=== PATIENT | female | born 1950 | race Hispanic/Latino ===

== ENCOUNTER → 2018-01-10 | Outpatient (CLI) | payer MEDICARE | END | disposition home or self-care (01) | LOC: SHCH 10:58 | PROVIDERS: ATTEND Internal Medicine Cardiovascular Disease | DX: I51.7 Cardiomegaly (principal); Z95.2 Presence of prosthetic heart valve | CPT/HCPCS: 93306 ==

== ENCOUNTER → 2019-01-26 | Outpatient (CLI) | payer MEDICARE | END | disposition home or self-care (01) | LOC: SHCH 10:00 | PROVIDERS: ATTEND Internal Medicine Cardiovascular Disease | DX: I08.2 Rheumatic disorders of both aortic and tricuspid valves (principal); I49.5 Sick sinus syndrome; Z95.2 Presence of prosthetic heart valve | CPT/HCPCS: 93306 ==

== ENCOUNTER 2019-05-08 23:52 | Emergency (ER) | payer MEDICARE ==
[~2019-05-08 23:52] MED LIST: CARV12.511 PO; FURO20TA4 PO; LISI-613 PO
[2019-05-09] MEDS ORDERED: ONDANSETRON HCL 4 MG/2 ML VIAL ONE (00:42)
[2019-05-09] MEDS ORDERED: METOCLOPRAMIDE 10 MG/2 ML VIAL ONE (00:42)
[2019-05-09] MEDS ORDERED: FAMOTIDINE/PF 20 MG/2 ML VIAL IV ONE (00:43)
[2019-05-09] MEDS ORDERED: SODIUM CHLORIDE 0.9% 1000ML 1,000 ML IV ONE (00:44)
[2019-05-09 00:56] LABS: BASOPHILS % (AUTO) 0.3 % (0.0-5.0); EOSINOPHILS % (AUTO) 2.9 % (0.0-8.0); HEMATOCRIT 35.3 % (36-48); MEAN CORPUSCULAR HEMOGLOBIN 29.6 pg (27.0-33.0); MEAN CORPUSCULAR HGB CONC 33.1 g/dL (32.0-36.0); MEAN CORPUSCULAR VOLUME 89.4 fL (79-99); MONOCYTES % (AUTO) 6.2 % (3.0-13.0); NEUTROPHILS % (AUTO) 55.1 % (40.0-77.0); PLATELET COUNT (AUTO) 180 K/uL (130-400); RED BLOOD CELL COUNT(AUTO) 3.95 MIL/uL (4.00-5.50); RED CELL DISTRIBUTION WIDTH 12.7 % (11.0-15.5); WHITE BLOOD COUNT (AUTO) 7.5 K/uL (4.8-10.8)
[2019-05-09 01:00] LABS: INR 0.9 (0.85-1.15); PARTIAL THROMBOPLASTIN TIME 25.2 SEC (26.3-35.5); PROTHROMBIN TIME 9.8 SEC (9.6-11.6)
[2019-05-09 01:01] LABS: CREATININE 0.9 mg/dL (0.5-1.5); POTASSIUM 3.9 mmol/L (3.5-5.1)
[2019-05-09 01:06] LABS: ALBUMIN 3.6 g/dL (3.5-5.0); BILIRUBIN,TOTAL 0.2 mg/dL (0.2-1.0); TOTAL PROTEIN, SERUM 7.5 g/dL (6.0-8.3)
[2019-05-09 01:41] LABS: APPEARANCE,URINE Clear (CLEAR); BILIRUBIN,URINE Negative (NEGATIVE); COLOR,URINE Yellow (YELLOW); GLUCOSE, URINE (UA) Negative (NEGATIVE); KETONES,URINE Negative (NEGATIVE); LEUKOCYTE ESTERASE ,URINE Small (NEGATIVE); NITRATE,URINE Negative (NEGATIVE); OCCULT BLOOD,URINE Negative (NEGATIVE); PH,URINE 6.5 (5.0-8.0); PROTEIN,URINE Negative (NEGATIVE); UROBILINOGEN,URINE 0.2 mg/dL (0.2-1.0)
[2019-05-09 01:59] LABS: BACTERIA,URINE Rare /HPF (None Seen); RBC,URINE 0-1 /HPF (0-1)
[2019-05-09] MEDS ORDERED: DiphenhydrAMINE HCL 50 MG/ML VIAL ONE (02:58)
== END 2019-05-09 03:35 | disposition home or self-care (01) ==
LOC: EDH 23:52
DX: K80.20 Calculus of gallbladder without cholecystitis without obstruction (principal); I10 Essential (primary) hypertension
CPT/HCPCS: 36415; 76705; 80053; 81001; 83690; 84484; 85025; 85610; 85730; 93005; 96361; 96374; 96375; 99284; J1200; J2405; J2765; J3490; J7030

== ENCOUNTER → 2020-05-26 | Outpatient (CLI) | payer MEDICARE ==
[~2020-05-26] MED LIST changes: -LISI-613 PO; +LISI20TA24 PO
== END | disposition home or self-care (01) ==
LOC: SHCH 12:37
PROVIDERS: ATTEND Internal Medicine Cardiovascular Disease
DX: I65.23 Occlusion and stenosis of bilateral carotid arteries (principal); I35.0 Nonrheumatic aortic (valve) stenosis; R09.89 Other specified symptoms and signs involving the circulatory and respiratory systems
CPT/HCPCS: 93306; 93880

== ENCOUNTER → 2022-07-05 | Outpatient (CLI) | payer MEDICARE ==
[~2022-07-05] MED LIST changes: +AMOX-429 PO; +CEFU500T67 PO
== END | disposition home or self-care (01) ==
LOC: SHCH 09:13 → MERGE 10:00
PROVIDERS: ATTEND Internal Medicine Cardiovascular Disease
DX: I05.0 Rheumatic mitral stenosis (principal); I11.9 Hypertensive heart disease without heart failure; E78.5 Hyperlipidemia, unspecified; Z95.2 Presence of prosthetic heart valve
CPT/HCPCS: 93306

== ENCOUNTER 2022-12-02 14:15 | Emergency (ER) | payer MEDICARE ==
[~2022-12-02] VITALS: Ht 152.4 cm; Wt 76.7 kg
[2022-12-02 14:56] LABS: BASOPHILS # (AUTO) 0.03 K/uL (0.00-0.20); BASOPHILS % (AUTO) 0.4 % (0.0-5.0); EOSINOPHILS # (AUTO) 0.17 K/uL (0.00-0.70); EOSINOPHILS % (AUTO) 2.5 % (0.0-8.0); IMMATURE GRANULOCYTE ABSOLUTE 0.02 K/uL (0-1); LYMPHOCYTES # (AUTO) 2.1 K/uL (1.0-4.8); LYMPHOCYTES % (AUTO) 31.6 % (21.0-51.0); MEAN CORPUSCULAR HEMOGLOBIN 29.6 pg (27.0-33.0); MEAN CORPUSCULAR HGB CONC 31.8 g/dL (32.0-36.0); MEAN CORPUSCULAR VOLUME 92.9 fL (79-99); MONOCYTES # (AUTO) 0.4 K/uL (0.1-1.0); MONOCYTES % (AUTO) 5.6 % (3.0-13.0); NEUTROPHILS % (AUTO) 59.6 % (40.0-77.0); PLATELET COUNT (AUTO) 180 K/uL (130-400); RED BLOOD CELL COUNT(AUTO) 4.09 MIL/uL (4.00-5.50); RED CELL DISTRIBUTION WIDTH 12.8 % (11.0-15.5); WHITE BLOOD COUNT (AUTO) 6.7 K/uL (4.8-10.8)
[2022-12-02] MEDS ORDERED: DICYCLOMINE HCL 10 MG/5 ML ML PO ONE (15:00)
[2022-12-02] MEDS ORDERED: FAMOTIDINE 20MG VIAL IV ONE (15:00)
[2022-12-02] MEDS ORDERED: MORPHINE 2 MG SYG IVP ONE (15:00)
[2022-12-02] MEDS ORDERED: LIDOCAINE HCL 2% VISCOUS 15 ML UDCUP PO ONE (15:00)
[2022-12-02] MEDS ORDERED: MAG/ALUM/SIMETH 30 ML UDCUP PO ONE (15:00)
[2022-12-02] MEDS ORDERED: METOCLOPRAMIDE 10 MG/2 ML VIAL IVP ONE (15:00)
[2022-12-02 15:09] LABS: CREATININE 0.9 mg/dL (0.5-1.5); POTASSIUM 4.2 mmol/L (3.5-5.1)
[2022-12-02 15:13] LABS: ALBUMIN 3.7 g/dL (3.5-5.0); BILIRUBIN,TOTAL 0.3 mg/dL (0.2-1.0); TOTAL PROTEIN, SERUM 7.6 g/dL (6.0-8.3)
[2022-12-02] MEDS ORDERED: IOHEXOL 350 MG/ML 100ML INFUS..BTL IV ONE (16:44)
[2022-12-02] MEDS ORDERED: PANT40TA PO (17:54)
[2022-12-02 17:58] VITALS: BP 132/68; PULSE 65; RESP 18; O2SAT 98
== END 2022-12-02 18:19 | disposition home or self-care (01) ==
LOC: EDH 14:15
DX: K29.70 Gastritis, unspecified, without bleeding (principal); K80.20 Calculus of gallbladder without cholecystitis without obstruction; I10 Essential (primary) hypertension; E78.00 Pure hypercholesterolemia, unspecified; Z79.899 Other long term (current) drug therapy
CPT/HCPCS: 99285; 74178; 96374; 71045; 96375; 84484; 80053; 83690; 85025; 36415; 93005; J3490; J2270; J2765; Q9967

== ENCOUNTER → 2023-09-19 | Outpatient (CLI) | payer MEDICARE ==
[~2023-09-19] MED LIST changes: +PANT40TA PO
== END | disposition home or self-care (01) ==
LOC: SHCH 10:22
PROVIDERS: ATTEND Internal Medicine Cardiovascular Disease
DX: I65.23 Occlusion and stenosis of bilateral carotid arteries (principal); I10 Essential (primary) hypertension
CPT/HCPCS: 93306; 93880

== ENCOUNTER 2024-06-02 16:57 | Emergency (ER) | payer MEDICARE, OTHER ==
[~2024-06-02] VITALS: Ht 149.9 cm; Wt 75.3 kg
[2024-06-02] MEDS ORDERED: CALA177S9 TP (18:28)
--- NOTE | 2024-06-02 18:28 | ERN ---
General Chief Complaint: Skin Rash/Abscess Stated Complaint: RASH Time Seen by MD: 17:32 Time Seen by Midlevel: 17:32 Source: patient History of Present Illness Initial Comments 73 year old female presenting to the emergency department for evaluation of a rash to her groin area that started approximately one week ago after she was exposed to poison wilver. She was seen by her primary care doctor who prescribed topical nystatin, topical triamcinolone, and valacyclovir for possible shingles. The patient states her symptoms have progressively worsened despite the medication. Allergies: Coded Allergies: No Allergy Information Available (Verified Allergy, Unknown, 06/03/22) No Known Drug Allergies (Verified Allergy, Unknown, 03/18/19) Home Meds Active Scripts Calamine/Zinc Oxide (Calamine Lotion) 8 %-8 % Lotion, 1 APPL TP TIDP PRN for Skin Protectant for 30 Days, #120 ML 0 Refills Prov:PHYLICIA LOUIE 06/02/24 Pantoprazole Sodium (Protonix) 40 Mg Tablet.dr, 40 MG PO DAILY, #30 TAB 2 Refills Prov:JOSUÉ SERRATO Sr., MD 12/02/22 Amoxicillin/Potassium Clav (Augmentin 875-125 Tablet) 1 Each Tablet, 1 EACH PO BID, #14 TAB Prov:RIGO BRICE MD 09/08/20 Cefuroxime Axetil (Cefuroxime) 500 Mg Tablet, 500 MG PO BID, #14 TAB Prov:RIGO BRICE MD 09/08/20 Reported Medications Carvedilol (Carvedilol) 12.5 Mg Tablet, 12.5 MG PO BID, TAB 03/18/19 Furosemide (Furosemide) 20 Mg Tablet, 20 MG PO DAILY, TAB 03/18/19 Lisinopril (Lisinopril) 20 Mg Tablet, 20 MG PO BID, TAB 03/18/19 Past Medical History Past Medical History: High Cholesterol, Hypertension, Hyperthyroid Past Surgical History: Cholecystectomy, CABG Social History Social History: Lives with family ROS Dictation CONSTITUTIONAL: Negative except for HPI HEAD/FACE: Negative except for HPI EENT: Negative except for HPI RESPIRATORY: Negative except for HPI GASTROINTESTINAL/ABDOMINAL: Negative except for HPI GENITOURINARY: Negative except for HPI MUSCULOSKELETAL: Negative except for HPI INTEGUMENTARY: Negative except for HPI NEUROLOGICAL/PSYCH: Negative except for HPI HEMATOLOGIC/LYMPHATIC: Negative except for HPI All Systems Negative, Except as noted above. 13 point review of systems assessed and all negative except for above. Physical Exam Physical Exam Dictation Vital Signs reviewed General Appearance: Alert, oriented x 3, no acute distress, well developed, nourished. Head and Face: non-traumatic. Eyes: PERRL, pink conjunctivas, eyelid no trauma, anterior chamber with arcus senilis. Ears: Pinnas intact and no signs of trauma or erythema ear canals clear and no discharge TM no erythema Nose: No discharge, no bleeding. Oropharynx: Mouth normal, tongue pink, pharynx clear,no erythema, tonsils no exudates, no abscesses noted, mucous membrane moist Neck: Supple, non-tender, no thyromegaly, no masses, no JVD, no bruits Breast:Deferred Chest:No tenderness, no crepitus, no paradoxical movement, no retractions Lungs:Clear, well-ventilated, symmetric, no rales, no wheezing, no rhonchi, no stridor, good breath sounds bilaterally Heart: Regular rate, regular rhythm, no murmur, no gallops Vascular: no peripheral edema, Abdomen: Soft, positive bowel sounds, nondistended, no guarding, nontender, no rebound, no masses no hepatomegaly, no splenomegaly, no Pineda's sign, no hernias. Rectal: Deferred Genital: Deferred Neurological: Normal speech, motor function intact, sensory function intact Musculoskeletal: Neck nontender, full range of motion, back nontender, full ra nge of motion, Extremities: nontender, full range of motion Skin: Rash to suprapubic abdomen and bilateral groin area Lymphatic: Deferred MDM MDM: 73 year old female presenting to the emergency department for evaluation of a rash to her groin area that started approximately one week ago after she was exposed to poison wilver. She was seen by her primary care doctor who prescribed topical nystatin, topical triamcinolone, and valacyclovir for possible shingles. The patient states her symptoms have progressively worsened despite the medication. On physical examination the rash is consistent with poison wilver dermatitis. We will discharged home with supportive management. Differential diagnosis: Poison wilver, cellulitis, tinea corporis There are no social concerns with this patient. Prescription drug management Prescriptions will include: Calamine lotion Medical management and examination interpretation discussions were had by me with other qualified healthcare professionals as indicated for the patient's care. ED Course Orders Procedure Category Date Status Time Diphenhydramine Hcl PHA 06/02/24 Complete (Benadryl Inj) 18:30 Dexamethasone 4mg/Ml PHA 06/02/24 Complete 1ml Vial (Dexametha 18:30 Current Medications Medications (Trade) Dose Ordered Sig/Mikki Route PRN Reason Start Time Stop Time Status Last Admin Dose Admin Dexamethasone Sodium Phosphate (dexaMETHasone 4MG/ML 1ML VIAL) 8 mg ONCE ONCE IM 06/02/24 18:30 06/02/24 18:31 DC 06/02/24 18:41 Diphenhydramine HCl (BENAdryl INJ) 50 mg ONCE ONCE IM 06/02/24 18:30 06/02/24 18:31 DC 06/02/24 18:36 Vital Signs Date Time Temp Pulse Resp B/P (MAP) Pulse Ox O2 Delivery O2 Flow Rate FiO2 06/02/24 18:42 98.1 74 16 155/72 98 Room Air* 0 21 06/02/24 17:01 98.1 75 18 157/73 98 Room Air 0 DX & DISP Disposition: Discharge Departure Impression: Primary Impression: Poison wilver dermatitis Condition: Stable Scripts Calamine/Zinc Oxide (Calamine Lotion) 8 %-8 % Lotion 1 APPL TP TIDP PRN for Skin Protectant for 30 Days, #120 ML 0 Refills Prov: PHYLICIA LOUIE 06/02/24 Referrals: CHAPIS PRATHER MD (PCP) DAVE CASILLAS MD I have reviewed the case, and I agree with, Diagnosis and Plan I performed the substantive portion of the visit. I have reviewed and personally made and approve the management plan that is documented in the note by myself or the IMELDA. I acknowledge for responsibility for the patient's management plan. PHYLICIA LOUIE Jun 02, 2024 18:28
[2024-06-02] MEDS: DiphenhydrAMINE HCL 50 MG/ML VIAL IM ONE (18:36)
[2024-06-02] MEDS: dexaMETHasone SOD PHOSPHATE 4 MG/ML 1ML VIAL IM ONE (18:41)
[2024-06-02 18:42] VITALS: BP 155/72; PULSE 74; RESP 16; TEMP 98.1; O2SAT 98
== END 2024-06-02 18:51 | disposition home or self-care (01) ==
LOC: EDH 16:57
DX: L23.7 Allergic contact dermatitis due to plants, except food (principal); E78.00 Pure hypercholesterolemia, unspecified; I10 Essential (primary) hypertension; Z79.899 Other long term (current) drug therapy; Z90.49 Acquired absence of other specified parts of digestive tract; Z95.1 Presence of aortocoronary bypass graft
CPT/HCPCS: 99284; 96372 ×2; J1100; J1200